=== PATIENT | male | born 1980 ===

== ENCOUNTER → 2023-09-18 08:11 | Outpatient (CLI) | payer OTHER ==
[2023-09-18 09:31] LABS: HEMATOCRIT 40.9 % (39.0-48.0); HEMOGLOBIN 13.1 g/dL (13-16.00); MEAN CORPUSCULAR HEMOGLOBIN 22.8 pg (27.00-32.0); MEAN CORPUSCULAR HGB CONC 32.1 g/dl (32.0-36.0); PLATELET COUNT 381 K/uL (150-450); RED BLOOD COUNT 5.76 M/uL (4.00-6.00); RED CELL DISTRIBUTION WIDTH 19.5 % (11.5-14.5)
[2023-09-18 10:35] LABS: % SATURACION 9.1 % (20-50); ALBUMIN 3.9 gm/dL (3.4-5.0); BILIRUBIN TOTAL 0.57 mg/dL (0.3-1.2); CALCIUM 8.9 mg/dL (8.5-10.1); CREATININE SERUM 1.29 mg/dL (0.70-1.30); GFR 60.51; POTASSIUM 4.2 mEq/L (3.5-5.1); TOTAL PROTEIN 7.9 gm/dL (6.4-8.2); TSH 1.2 uIU/mL (0.358-3.74)
[2023-09-18 10:42] LABS: FERRITIN 7.2 NG/ML (26-388)
[2023-09-20 15:17] LABS: FOLIC ACID 17.45 ng/ml (4.78-20)
== END | disposition home or self-care (01) ==
LOC: LAB 08:11
PROVIDERS: ATTEND Internal Medicine Hematology & Oncology
DX: R79.9 Abnormal finding of blood chemistry, unspecified (principal); I10 Essential (primary) hypertension; R74.02 Elevation of levels of lactic acid dehydrogenase [LDH]; K76.89 Other specified diseases of liver; E03.8 Other specified hypothyroidism; E06.3 Autoimmune thyroiditis; D51.1 Vitamin B12 deficiency anemia due to selective vitamin B12 malabsorption with proteinuria; D51.0 Vitamin B12 deficiency anemia due to intrinsic factor deficiency; D50.8 Other iron deficiency anemias; M51.06 Intervertebral disc disorders with myelopathy, lumbar region; F41.1 Generalized anxiety disorder; K58.0 Irritable bowel syndrome with diarrhea; K29.50 Unspecified chronic gastritis without bleeding

== ENCOUNTER → 2023-11-24 06:11 | Outpatient (CLI) | payer OTHER ==
[2023-11-24 07:30] LABS: HEMATOCRIT 43.6 % (39.0-48.0); MEAN CELL VOLUME 73.5 fL (80.0-100.00); MEAN CORPUSCULAR HEMOGLOBIN 23.6 pg (27.00-32.0); MEAN CORPUSCULAR HGB CONC 32.2 g/dl (32.0-36.0); PLATELET COUNT 331 K/uL (150-450); RED BLOOD COUNT 5.94 M/uL (4.00-6.00); RED CELL DISTRIBUTION WIDTH 21.6 % (11.5-14.5)
[2023-11-24 07:48] LABS: ALBUMIN 3.9 gm/dL (3.4-5.0); BILIRUBIN TOTAL 0.74 mg/dL (0.3-1.2); CALCIUM 9.2 mg/dL (8.5-10.1); CREATININE SERUM 1.3 mg/dL (0.70-1.30); FERRITIN 24.6 NG/ML (26-388); GFR 59.7; GLOBULINA 3.8 G/DL (2.4-3.5); POTASSIUM 4.51 mEq/L (3.5-5.1); TOTAL PROTEIN 7.7 gm/dL (6.4-8.2)
[2023-11-24 08:02] LABS: MANUAL PLATELET COUNT 556
[2023-11-24 08:05] LABS: PLATELET ESTIMATE INCREASED (NORMAL)
[2023-11-24 10:52] LABS: FOLIC ACID 16.32 ng/ml (4.78-20)
== END | disposition home or self-care (01) ==
LOC: LAB 06:11
PROVIDERS: ATTEND Internal Medicine Hematology & Oncology
DX: D50.8 Other iron deficiency anemias (principal); R79.9 Abnormal finding of blood chemistry, unspecified; I10 Essential (primary) hypertension; R74.02 Elevation of levels of lactic acid dehydrogenase [LDH]; K76.89 Other specified diseases of liver; M51.06 Intervertebral disc disorders with myelopathy, lumbar region; F41.1 Generalized anxiety disorder; K58.0 Irritable bowel syndrome with diarrhea; K29.50 Unspecified chronic gastritis without bleeding